=== PATIENT | male | born 1985 | race African-American/Black ===

== ENCOUNTER → 2018-12-28 | Outpatient (CLI) | payer SELFPAY ==
[2018-12-28 16:35] LABS: Albumin 3.8 g/dL (3.80-4.90); Albumin/Globulin Ratio 1.27 (1.60-3.17); Anion Gap 10.5 mmol/L (4.00-12.00); C Reactive Protein 1.6 mg/dL (0.0-0.8); Calcium 8.9 mg/dL (8.7-10.3); Carbon Dioxide 19.5 mmol/L (21.6-31.8); Potassium 3.7 mmol/L (3.5-5.5); Total Bilirubin 0.3 mg/dL (0.3-1.2); Total Protein 6.8 g/dL (6.2-8.2)
== END | disposition home or self-care (01) ==
LOC: LABWHC1 09:27
PROVIDERS: ATTEND Internal Medicine Critical Care Medicine
DX: R05 Cough (principal); R91.8 Other nonspecific abnormal finding of lung field
CPT/HCPCS: 36415; 80053; 82164; 85652; 86001; 86140; 86606; 86609

== ENCOUNTER → 2019-01-03 | Outpatient (CLI) | payer SELFPAY ==
--- NOTE | 2019-01-03 09:09 | CT ---
EXAMINATION TYPE: CT chest w con DATE OF EXAM: 01/03/2019 COMPARISON: Chest x-ray December 28, 2018. HISTORY: Cough CT DLP: 582.9 mGycm. Automated Exposure Control for Dose Reduction was Utilized. TECHNIQUE: CT scan of the thorax is performed following with IV Contrast, patient injected with 100 mL of Isovue 300. FINDINGS: LUNGS: Right lung shows multifocal areas of masslike consolidation with air bronchograms involving up per middle and lower lobes, largest lesion measures 3.7 x 2.7 cm axial image 28 and is believed to ac count for the chest x-ray abnormality. Another reference lesion right lower lobe measures 3.4 x 2.3 c m axial image 34. There are 2 lesions noted axial image 40. There is also left-sided involvement with masslike consolidation in the left lung base measuring 2.9 x 2.8 cm axial image 51. MEDIASTINUM: There are enlarged thoracic lymph nodes. For reference subcarinal lymph node measures 5. 1 x 2.6 cm on axial image 25. There are enlarged paratracheal and prevascular lymph nodes axial image 18. There are enlarged bilateral hilar lymph nodes. No cardiomegaly or pericardial effusion is seen. OTHER: No additional significant abnormality is seen. IMPRESSION: There is bilateral multilobar multifocal masslike consolidations with thoracic adenopathy favoring infectious process, I would consider further workup to exclude underlying immunocompromise state. Findings significantly more prominent in the right lung versus left lung. Consider bronchoscop y with sampling if lesions do not resolve.
== END ==
LOC: RADCTMAIN 07:21
PROVIDERS: ATTEND Internal Medicine Critical Care Medicine
DX: R91.8 Other nonspecific abnormal finding of lung field (principal); R59.0 Localized enlarged lymph nodes
CPT/HCPCS: 71260; Q9967